=== PATIENT | male | born 1990 | race Caucasian/White ===

== ENCOUNTER 2024-06-29 09:49 | Outpatient (AMB) | payer BC, SELFPAY ==
--- NOTE | 2024-06-29 10:11 | MHC.PC.OV ---
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 ?? Prior PCP:? No PCP since Pediatrics, Dr Payton. Acute issue(s):? L arm pain shooting ?? PMHx:? None SurgHx:? L foot Incision & Drainage FHx:?Mom: DM2. Dad: EtOH, HTN. SocHx:? Quit Cigs 1 yr ago. EtOH: 2 drinks on a weekend. No drugs PFSH Surgical History (Updated 06/29/24 @ 10:48 by Hermilo Gregory [facility]) No pertinent past surgical history Family History (Updated 06/29/24 @ 10:18 by Aida Sandoval [facility]) Father High blood pressure Alcoholism Mother Diabetes Maternal Grandfather Cardiovascular disease Social History (Updated 06/29/24 @ 10:18 by Aida Sandoval [facility]) Housing: House Patient Tobacco Use Status: Former Tobacco user e-Cigarette/Vaping Use: Never Used Second Hand Smoke Exposure: No Use of substances other than those prescribed or required for medical reasons: No service: No Current occupational status: employed 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 1. Little interest or pleasure in doing things: not at all 2. Feeling down, depressed, or hopeless: not at all 3. Trouble falling or staying asleep, or sleeping too much: not at all 4. Feeling tired or having little energy: not at all 5. Poor appetite or overeating: not at all 6. Feeling bad about yourself - or that you are a failure or have let yourself or your family down: not at all 7. Trouble concentrating on things, such as reading the newspaper or watching television: not at all 8. Moving or speaking so slowly that other people could have noticed. Or the opposite - being so fidgety or restless that you have been moving around a lot more than usual: not at all 9. Thoughts that you would be better off or of hurting yourself in some way: not at all Total score: 0 Depression Screening Interpretation: Negative Depression Screening Done: Yes 16620 - PHQ-9 Billing: Yes Source: Developed by Drs. Krishna Krishnamurthy, Lily Edward, Eugenio Lopez and colleagues, with an educational pepe from [employer]. Thrive Questionnaire Date Thrive assessed: 06/29/24 I am a: Patient What is your living situation today?: I have a steady place to live Within the past 12 months, did the food you bought not last and you didn't have the money to get more?: Never true Within the past 12 months, did you worry whether your food would run out before you got money to buy more?: Never true Do you have trouble paying for medicines?: No Do you have trouble getting transportation to medical appointments?: No Do you have trouble paying your heating and electricity bill?: No Do you have trouble taking care of your child, family member or friend?: No Do you have trouble with day-to-day activities such as bathing, preparing meals, shopping, managing finances, etc.?: No Are you currently unemployed and looking for a job?: No Are you interested in more education?: No Please select the resources that you would like help with: None Currently or been in a relationship where the following occur: No concerns reported THRIVE Score: 0 AUDIT C Alcohol Use Questionnaire (AUDIT-C) 1. How often do you have a drink containing alcohol?: 2-3 times a week 2. How many drinks containing alcohol do you have on a typical day when you are drinking?: 1 or 2 3. How often do you have six or more drinks on one occasion?: Never Total Score: 3 Score Reviewed/Action Taken: Yes LOUISE-7 AMB Questionnaire LOUISE-7 Date LOUISE - 7 assessed: 06/29/24 Feeling nervous, anxious, or on edge: 0 = Not at all Not being able to stop or control worryin = Not at all Worrying too much about different things: 0 = Not at all Trouble relaxin = Not at all Being so restless that it is hard to sit still: 0 = Not at all Becoming easily annoyed or irritable: 0 = Not at all Feeling afraid as if something awful might happen: 0 = Not at all Total LOUISE-7 score (0-4 normal; 5-9 mild; 10-14 moderate; 15-21 severe): 0 Source: Developed by Drs. Krishna Krishnamurthy, Lily Edward, Eugenio Lopez and colleagues, with an educational pepe from [employer]. LOUISE-7 Assessment Billing LOUISE-7 Assessment Tool: LOUISE-7 Assessment 51883 Review of Systems Const Denies chills, Denies fatigue, Denies fever(s), Denies headache(s) and Denies weakness ENT Denies dizziness and Denies headache(s) Card Denies chest pain, Denies lightheadedness, Denies dyspnea and Denies other (Palpitations) Resp Denies cough, Denies dyspnea, Denies wheezing and Denies other ( shortness of breath) Musc Denies numbness and Denies tingling Neuro Denies dizziness, Denies headache(s), Denies numbness, Denies tingling, Denies paresthesias and Denies weakness Psych Denies anxiety and Denies depression Endo Denies fatigue Aller/Immun Denies wheezing Physical exam (Primary Care) Vital Signs: Last Vital Signs Temp 97.6 F 06/29/24 10:19 Pulse 89 06/29/24 10:19 Resp 14 06/29/24 10:19 BP 120/70 06/29/24 10:19 Pulse Ox 99 06/29/24 10:19 Oxygen Delivery Method Room Air 06/29/24 10:19 BMI result Body Mass Index 26.0 Tobacco/Smoking Status: Tobacco use Status Tobacco use date assessed 06/29/24 06/29/24 10:23 Patient Tobacco Use Status Former Tobacco user 06/29/24 10:23 e-Cigarette/Vaping Use Never Used 06/29/24 10:23 PHQ-9: PHQ-9 Score PHQ-9: Total score 0 06/29/24 10:44 Depression Screening Interpretation: Negative Thrive Assessment: Date of Thrive Assessment Date Thrive assessed 06/29/24 06/29/24 10:23 Currently or been in a relationship where the following occur: No concerns reported Const General: no acute distress and well developed Nutritional Appearance: well nourished Orientation/consciousness: patient oriented x3 HENMT Head: Yes normocephalic and Yes atraumatic Eyes General: appearance normal, both eyes and all related structures Pupils: Equal, round and reactive pupils present EOM: EOMs intact bilaterally Resp Effort & Inspection: normal respiratory effort Auscultation: clear to auscultation bilaterally Cardio Rate: regular rate Rhythm: regular rhythm Heart sounds: S1 normal heart sound present, S2 normal heart sound present, no gallops, no murmurs and no rubs Neuro General: patient oriented x3 and gait normal Cranial nerves: Yes Equal, round and reactive pupils present Psych Affect: normal affect Coding Level of Care Code New Pt Level 3 (57540) Diagnoses Left arm pain M79.602 Laboratory exam ordered as part of routine general medical examination Z00.00 Additional Codes LOUISE-7 Assessment Billing - LOUISE-7 Assessment Tool: LOUISE-7 Assessment 47692 ([id number]) PHQ-9 - 40006 - PHQ-9 Billing: Yes ([id number]) Assessment & Plan Assessment & Plan (1) Left arm pain: Code(s): M79.602 - Pain in left arm Category: Medical Plan: Patient?gets?intermittent?brief?shooting?pains?in?left?arm 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 Advised?ice,?relative?rest?and?NSAIDs Also?advised?he?try?to?avoid?sleeping?on?the?arm?or?sleeping?with?his?up Will?check?x-ray If?not?improving?will?consider?physical?therapy?or?referral (2) Laboratory exam ordered as part of routine general medical examination: Code(s): Z00.00 - Encounter for general adult medical examination without abnormal findings Category: Medical Plan: Check?labs Orders: Orders Lipid Panel Today Z00.00 - Encounter for general adult medical examination without abnormal findings Microalbumin, Random (w Creat) Today I10 - Essential (primary) hypertension UA and rflx microscopic Today Z00.00 - Encounter for general adult medical examination without abnormal findings Comprehensive [place]. Panel Fast Today Z00.00 - Encounter for general adult medical examination without abnormal findings TSH reflex Free T4 Today Z00.00 - Encounter for general adult medical examination without abnormal findings XR shoulder LT min 2V Today M79.602 - Pain in left arm
[2024-06-29 10:19] VITALS: BP 120/70; PULSE 89; RESP 14; TEMP 36.4; O2SAT 99; BMI 26.0
== END 2024-06-29 10:57 | disposition home or self-care (01) ==
PROVIDERS: PCP Family Medicine; Visit Provider Family Medicine
DX: M79.602 Pain in left arm (principal); Z00.00 Encounter for general adult medical examination without abnormal findings

== ENCOUNTER → 2024-06-29 09:49 | Outpatient (BNVA) | payer BC, SELFPAY | PROVIDERS: PCP Family Medicine; Visit Provider Family Medicine | DX: Z00.00 Encounter for general adult medical examination without abnormal findings (principal); M79.602 Pain in left arm | CPT/HCPCS: 96127 ==

== ENCOUNTER 2024-07-10 08:22 | Outpatient (REF) | payer BC, SELFPAY ==
[2024-07-10 11:23] LABS: Appearance Urine Clear; Color Urine Yellow; Glucose Urine UA Negative (Negative); Leukocyte Esterase Urine Negative (Negative); Nitrite Urine Negative (Negative); Urine Blood Negative (Negative); Urine Ketones Negative (Negative); Urine Protein Negative (Neg-Trace)
[2024-07-10 11:43] LABS: Alanine Aminotransferase 27 U/L (0-40); Albumin Level 4.7 g/dL (3.5-5.0); Alkaline Phosphatase 58 U/L (39-117); Anion Gap 12 (12-20); Aspartate Amino Transferase 27 U/L (5-37); Bilirubin Total 0.9 mg/dL (0.0-1.0); Blood Urea Nitrogen 16 mg/dL (9-16); Calcium 9.7 mg/dL (8.4-10.2); Carbon Dioxide 26 mmol/L (22-29); Chloride 104 mmol/L (96-108); Cholesterol 154 mg/dL (<200); Estimated Glomerular Filt Rate > 60; Glucose Fasting 90 mg/dL (60-99); HDL Cholesterol 59 mg/dL (>40); LDL Cholesterol Calculated 84 mg/dL (<100); Potassium 4.1 mmol/L (3.3-5.1); Sodium 138 mmol/L (135-145); TSH reflex Free T4 1.35 uIU/mL (0.32-4.0); Total Protein 7.8 g/dL (6.5-8.0); Triglycerides 58 mg/dL (<150)
[2024-07-10 11:58] LABS: Creatinine Urine 39.71 mg/dL; Microalbumin Urine < 5.0 mg/L
== END 2024-07-10 08:23 | disposition home or self-care (01) ==
LOC: HO.WFDLDS 08:22
PROVIDERS: Visit Provider Family Medicine
DX: Z00.00 Encounter for general adult medical examination without abnormal findings (principal); I10 Essential (primary) hypertension
CPT/HCPCS: 36415; 80053; 80061; 81003; 82570; 84443

== ENCOUNTER 2024-07-21 09:38 | Outpatient (REF) | payer BC, SELFPAY ==
--- NOTE | ~2024-07-21 | XR_ITS ---
EXAMINATION: XR SHOULDER, LEFT CLINICAL INFORMATION: M79.602 - Pain in left arm COMPARISON: None available. TECHNIQUE: AP external rotation, Grashey, scapular Y, and axillary views of the left shoulder. FINDINGS: No acute cortical disruption or malalignment. No lytic or blastic lesions. No metallic or radiopaque foreign body. No subcutaneous emphysema. Minimal subchondral cyst formation the acromioclavicular joint. XR/XR shoulder LT min 2V IMPRESSION: Mild degenerative changes in the acromioclavicular joint. Electronically signed by: Babar Holladn MD 07/23/2024 11:15 AM [facility]
== END 2024-07-21 09:39 | disposition home or self-care (01) ==
LOC: HO.HMGCX 09:38
PROVIDERS: PCP Family Medicine; Visit Provider Family Medicine
DX: M79.602 Pain in left arm (principal)
CPT/HCPCS: 73030

== ENCOUNTER → 2024-07-21 09:49 | Outpatient (BNV) | payer BC, SELFPAY | PROVIDERS: PCP Family Medicine; Visit Provider Radiology Diagnostic Radiology | DX: M79.602 Pain in left arm (principal); M19.012 Primary osteoarthritis, left shoulder | CPT/HCPCS: 73030 ==

== ENCOUNTER 2025-04-13 13:47 | Outpatient (AMB) | payer BC, SELFPAY ==
--- NOTE | 2025-04-13 13:51 | MHC.PC.OV ---
Vital Signs 04/13/25 13:54 Height 5 ft 11 in Weight 185 lb 4 oz BMI 25.8 BP 136/85 Blood Pressure Location Lt brachial Position Sitting Respiration 13 Pulse 78 Pulse Source Pulse Oximeter Temp 97.7 F Temp Source Temporal Artery Scan Pulse Oximetry (%) 100 Oxygen Delivery Method Room Air Intake Visit Reasons: persistent rash arms and legs Intake Note: Patient c/o persistent rash on both arms and legs x 2 months Oracle Solutions Architect Required: No Allergies erythromycin base Adverse Reaction (Intermediate, Verified 04/13/25 13:52) Rash Medication List - Last Reconciled 04/13/25 by Baldo Reynolds MD No Known Home Meds Tobacco use date assessed: 04/13/25 Dental Screening Dental Screen Date: 04/13/25 Did you have a dental visit in the last 12 months?: Yes Did you have a dental problem in the last 6 months where you did not have access to dental care?: No Was dental information given to patient?: Patient has dentist HPI persistent rash arms and legs HPI Details 34 y/o male presents today with complaints of rash on arms/legs. He reports rash x2 months. Notes he has trialed hydrocortisone with no relief. Notes rash is spreading somewhat. 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 1. Little interest or pleasure in doing things: not at all 2. Feeling down, depressed, or hopeless: not at all 3. Trouble falling or staying asleep, or sleeping too much: not at all 4. Feeling tired or having little energy: not at all 5. Poor appetite or overeating: not at all 6. Feeling bad about yourself - or that you are a failure or have let yourself or your family down: not at all 7. Trouble concentrating on things, such as reading the newspaper or watching television: not at all 8. Moving or speaking so slowly that other people could have noticed. Or the opposite - being so fidgety or restless that you have been moving around a lot more than usual: not at all 9. Thoughts that you would be better off or of hurting yourself in some way: not at all Total score: 0 Depression Screening Interpretation: Negative Depression Screening Done: Yes 30715 - PHQ-9 Billing: Yes Source: Developed by Drs. Krishna Krishnamurthy, Lily Edward, Eugenio Lopez and colleagues, with an educational pepe from [employer]. Thrive Questionnaire Date Thrive assessed: 04/13/25 I am a: Patient What is your living situation today?: I have a steady place to live Within the past 12 months, did the food you bought not last and you didn't have the money to get more?: Never true Within the past 12 months, did you worry whether your food would run out before you got money to buy more?: Never true Do you have trouble paying for medicines?: No Do you have trouble getting transportation to medical appointments?: No Do you have trouble paying your heating and electricity bill?: No Do you have trouble taking care of your child, family member or friend?: No Do you have trouble with day-to-day activities such as bathing, preparing meals, shopping, managing finances, etc.?: No Are you currently unemployed and looking for a job?: No Are you interested in more education?: No Please select the resources that you would like help with: None Currently or been in a relationship where the following occur: No concerns reported THRIVE Score: 0 LOUISE-7 AMB Questionnaire LOUISE-7 Date LOUISE - 7 assessed: 04/13/25 Feeling nervous, anxious, or on edge: 0 = Not at all Not being able to stop or control worryin = Not at all Worrying too much about different things: 0 = Not at all Trouble relaxin = Not at all Being so restless that it is hard to sit still: 0 = Not at all Becoming easily annoyed or irritable: 0 = Not at all Feeling afraid as if something awful might happen: 0 = Not at all Total LOUISE-7 score (0-4 normal; 5-9 mild; 10-14 moderate; 15-21 severe): 0 Source: Developed by Drs. Krishna Krishnamurthy, Lily Edward, Eugenio Lopez and colleagues, with an educational pepe from [employer]. LOUISE-7 Assessment Billing LOUISE-7 Assessment Tool: LOUISE-7 Assessment 08579 Review of Systems Const Denies chills, Denies fatigue, Denies fever(s), Denies headache(s) and Denies weakness ENT Denies dizziness and Denies headache(s) Card Denies dyspnea Resp Denies cough, Denies dyspnea, Denies wheezing and Denies other (shortness of breath) Musc Denies numbness and Denies tingling Skin/Breast Reports rash Neuro Denies dizziness, Denies headache(s), Denies numbness, Denies tingling and Denies weakness Psych Denies anxiety and Denies depression Endo Denies fatigue Aller/Immun Denies wheezing Physical exam (Primary Care) Vital Signs: Last Vital Signs Temp 97.7 F 04/13/25 13:54 Pulse 78 04/13/25 13:54 Resp 13 04/13/25 13:54 BP 136/85 04/13/25 13:54 Pulse Ox 100 04/13/25 13:54 Oxygen Delivery Method Room Air 04/13/25 13:54 BMI result Body Mass Index 25.8 Tobacco/Smoking Status: Tobacco use Status Tobacco use date assessed 04/13/25 04/13/25 13:56 Patient Tobacco Use Status Former Tobacco user 04/13/25 13:56 e-Cigarette/Vaping Use Never Used 04/13/25 13:56 PHQ-9: PHQ-9 Score PHQ-9: Total score 0 04/13/25 13:56 Depression Screening Interpretation: Negative Thrive Assessment: Date of Thrive Assessment Date Thrive assessed 04/13/25 04/13/25 13:56 Currently or been in a relationship where the following occur: No concerns reported Const General: well developed; No acute distress Nutritional Appearance: well nourished Orientation/consciousness: patient oriented x3 HENMT Head: Yes normocephalic and Yes atraumatic Eyes General: appearance normal, both eyes and all related structures Pupils: Equal, round and reactive pupils present EOM: EOMs intact bilaterally Resp Effort & Inspection: normal respiratory effort Neuro General: patient oriented x3 and gait normal Cranial nerves: Yes Equal, round and reactive pupils present Psych Affect: normal affect Coding Level of Care Code Est Pt Level 3 (55263) Diagnoses Rash R21 Additional Codes LOUISE-7 Assessment Billing - LOUISE-7 Assessment Tool: LOUISE-7 Assessment 20319 ([id number]) PHQ-9 - 93692 - PHQ-9 Billing: Yes ([id number]) Assessment & Plan Assessment & Plan (1) Rash: Code(s): R21 - Rash and other nonspecific skin eruption Category: Medical Plan: Patient has rash which is spreading somewhat. Erythematous with scale and mildly raised edge. Lesions are somewhat confluent Steroid creams have not helped This appears fungal Will give him a script of fluconazole 150 mg x 2 doses Q3 days. Also start terbinafine cream. Avoid excess moisture As he has had multiple visits and workups as well as treatments, will refer him to Dermatology. He can cancel this if above treatment completely resolves his Orders: Referrals Dermatology Referral R21 - Rash and other nonspecific skin eruption Medications: New terbinafine HCl 1% 1 appl topical BID 45 grams 0RF 14 days fluconazole 150 mg PO Q3D 2 tabs 0RF 2 doses
[2025-04-13 13:54] VITALS: BP 136/85; PULSE 78; RESP 13; TEMP 36.5; O2SAT 100; BMI 25.8
== END 2025-04-13 15:34 | disposition home or self-care (01) ==
LOC: HO.HMCFM 13:48
PROVIDERS: PCP Family Medicine; Visit Provider Family Medicine
DX: R21 Rash and other nonspecific skin eruption (principal)

== ENCOUNTER → 2025-04-13 13:47 | Outpatient (BNVA) | payer BC, SELFPAY | PROVIDERS: PCP Family Medicine; Visit Provider Family Medicine | DX: R21 Rash and other nonspecific skin eruption (principal) | CPT/HCPCS: 96127 ==

== ENCOUNTER 2025-04-22 10:49 | Outpatient (AMB) | payer BC, SELFPAY ==
--- NOTE | 2025-04-22 10:52 | A.OFFPC_ITS ---
Vital Signs 04/22/25 10:57 Height 5 ft 11 in Weight 182 lb BMI 25.4 BP 119/72 Blood Pressure Location Lt brachial Position Sitting Respiration 16 Pulse 77 Pulse Source Pulse Oximeter Temp 97.4 F Temp Source Oral Pulse Oximetry (%) 100 Oxygen Delivery Method Room Air Intake Visit Reasons: Rash, spreading Intake Note: patient here c/o rash spreading Tablet Technician Required: No Allergies erythromycin base Adverse Reaction (Intermediate, Verified 04/22/25 10:56) Rash Medication List - Last Reconciled 04/22/25 by Baldo Reynolds MD fluconazole 150 mg PO Q3D 2 doses terbinafine HCl 1% 1 appl topical BID 14 days Tobacco use date assessed: 04/22/25 Dental Screening Dental Screen Date: 04/22/25 Did you have a dental visit in the last 12 months?: Yes Did you have a dental problem in the last 6 months where you did not have access to dental care?: No Was dental information given to patient?: Patient has dentist HPI Rash, spreading HPI Details 34 y/o male presents with ongoing compla ints of a rash. Pt notes rash has been spreading. 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 Current occupational exposures/hazards: Yes Cognitive needs: No Hearing needs: No Vision needs: No Questionnaire Thrive Questionnaire Date Thrive assessed: 06/22/24 I am a: Patient What is your living situation today?: I have a steady place to live Within the past 12 months, did the food you bought not last and you didn't have the money to get more?: Never true Within the past 12 months, did you worry whether your food would run out before you got money to buy more?: Never true Do you have trouble paying for medicines?: No Do you have trouble getting transportation to medical appointments?: No Do you have trouble paying your heating and electricity bill?: No Do you have trouble taking care of your child, family member or friend?: No Do you have trouble with day-to-day activities such as bathing, preparing meals, shopping, managing finances, etc.?: No Are you currently unemployed and looking for a job?: No Are you interested in more education?: No Please select the resources that you would like help with: None Currently or been in a relationship where the following occur: No concerns reported THRIVE Score: 0 LOUISE-7 AMB Questionnaire LOUISE-7 Date LOUISE - 7 assessed: 04/13/25 Source: Developed by Drs. Krishna Krishnamurthy, Lily Edward, Eugenio Lopez and colleagues, with an educational pepe from [employer]. Review of Systems Const Denies chills, Denies fatigue, Denies fever(s), Denies headache(s) and Denies weakness ENT Denies dizziness and Denies headache(s) Card Denies dyspnea Resp Denies cough, Denies dyspnea, Denies wheezing and Denies other (shortness of breath) Musc Denies numbness and Denies tingling Neuro Denies dizziness, Denies headache(s), Denies numbness, Denies tingling and Denies weakness Psych Denies anxiety and Denies depression Endo Denies fatigue Aller/Immun Denies wheezing Physical exam (Primary Care) Vital Signs: Last Vital Signs Temp 97.4 F 04/22/25 10:57 Pulse 77 04/22/25 10:57 Resp 16 04/22/25 10:57 BP 119/72 04/22/25 10:57 Pulse Ox 100 04/22/25 10:57 Oxygen Delivery Method Room Air 04/22/25 10:57 BMI result Body Mass Index 25.4 Tobacco/Smoking Status: Tobacco use Status Tobacco use date assessed 04/22/25 04/22/25 11:00 Patient Tobacco Use Status Former Tobacco user 04/22/25 10:54 e-Cigarette/Vaping Use Never Used 04/22/25 10:54 Thrive Assessment: Date of Thrive Assessment Date Thrive assessed 06/22/24 04/22/25 10:54 Currently or been in a relationship where the following occur: No concerns reported Const General: well developed; No acute distress Nutritional Appearance: well nourished Orientation/consciousness: patient oriented x3 [facility] Head: Yes normocephalic and Yes atraumatic Eyes General: appearance normal, both eyes and all related structures Pupils: Equal, round and reactive pupils present EOM: EOMs intact bilaterally Resp Effort & Inspection: normal respiratory effort Neuro General: patient oriented x3 and gait normal Cranial nerves: Yes Equal, round and reactive pupils present Psych Affect: normal affect Coding Level of Care Code Est Pt Level 3 (29116) Diagnoses Rash R21 Assessment & Plan Assessment & Plan (1) Rash: Code(s): R21 - Rash and other nonspecific skin eruption Category: Medical Plan: Ongoing rash He has seen urgent care and was given topical steroids which he said did not he lp I gave him a script for antifungal, topical and oral. He sent these did not help either however, thereafter he said hydrocortisone OTC was helping. Will give him a script for oral prednisone x 5 days. He can continue hydrocortisone. Can also try 25 mg of Benadryl at bedtime x 5 days. He has an upcoming appointment with Dermatology May 16 and I encouraged him attend. Medications: New prednisone 40 mg (2 x 20 mg) PO DAILY 10 tabs 0RF 5 days Discontinued terbinafine HCl 1% Discontinued Reason: Doctor's Order 1 appl topical BID 14 days 45 grams 0RF fluconazole Discontinued Reason: Doctor's Order 150 mg PO Q3D 2 tabs 0RF
[2025-04-22 10:57] VITALS: BP 119/72; PULSE 77; RESP 16; TEMP 36.3; O2SAT 100; BMI 25.4
== END 2025-04-22 12:56 | disposition home or self-care (01) ==
LOC: HO.HMCFM 10:49
PROVIDERS: PCP Family Medicine; Visit Provider Family Medicine
DX: R21 Rash and other nonspecific skin eruption (principal)